=== PATIENT | female | born 2000 | race Two or more races ===

== ENCOUNTER 2024-07-31 21:34 | Emergency (ER) | payer BC ==
[~2024-07-31] VITALS: Ht 162.6 cm; Wt 54.4 kg
[2024-08-01] MEDS ORDERED: CEFTRIAXONE SODIUM 1,000 MG VIAL IM STA (02:09)
[2024-08-01] MEDS ORDERED: CEFTRIAXONE SODIUM 1,000 MG VIAL ONE (02:13)
[2024-08-01] MEDS ORDERED: CEPHALEXIN500 MG PO (02:13)
[2024-08-01] MEDS ORDERED: MUPIROCIN1 G1 TOP (02:13)
== END 2024-08-01 02:22 ==
LOC: ER 21:49
DX: G89.11 Acute pain due to trauma (principal); M79.605 Pain in left leg